=== PATIENT | female | born 1960 | race Caucasian/White ===

== ENCOUNTER 2019-07-03 13:39 | Emergency (ER) | payer OTHER ==
[2019-07-03] MEDS ORDERED: Sodium Chloride 0.9% 10 ML Syringe FLUSH PRN (13:43)
[2019-07-03 14:13] LABS: CHLORIDE,CL 92 mmol/L (98-107); SODIUM,NA 130 mmol/L (136-145)
[2019-07-03] MEDS: Ondansetron 4 MG/2 ML SDV IVPUSH ONE (14:17)
[2019-07-03] MEDS: Sodium Chloride 0.9% 250 ML IV SCH (14:17)
[2019-07-03] MEDS: SUMAtriptan 6 MG/0.5 ML SDV SUBCUT ONE (14:52)
[2019-07-03] MEDS: LORazepam 1 MG Tab PO ONE (14:53)
--- NOTE | 2019-07-03 15:45 | EDM.PDOC ---
ED HPI GENERAL MEDICAL PROBLEM - General Chief Complaint: General Stated Complaint: dizziness, "head feels foggy" Time Seen by Provider: 07/03/19 13:45 Source of Information: Reports: Patient History Limitations: Reports: No Limitations - History of Present Illness INITIAL COMMENTS - FREE TEXT/NARRATIVE: Patient is a 58-year-old who is seen with chief complaint of not being able to focus with her vision on single object is a and dizzy he appears to be very anxious recently was told that her sister had 2 or in the head and had surgery she spent 4 days over there and is very concerned and anxious about this at this time we evaluated her and performed a CT of the head which was negative Onset: Sudden Duration: Day(s):, Getting Worse Location: Reports: Head, Face Quality: Reports: Ache Severity: Moderate Improves with: Reports: None Worsens with: Reports: None Context: Reports: Other (Anxiety) Associated Symptoms: Reports: Headaches, Nausea/Vomiting - Related Data Allergies Allergy/AdvReac Type Severity Reaction Status Date / Time No Known Allergies Allergy Verified 07/03/19 13:44 Home Meds: Home Meds . [No Known Home Meds] 07/03/19 [History] ED ROS GENERAL - Review of Systems Review Of Systems: See Below Constitutional: Reports: No Symptoms HEENT: Reports: No Symptoms Respiratory: Reports: No Symptoms Cardiovascular: Reports: No Symptoms Endocrine: Reports: No Symptoms GI/Abdominal: Reports: No Symptoms : Reports: No Symptoms Musculoskeletal: Reports: No Symptoms Skin: Reports: No Symptoms Neurological: Reports: No Symptoms Psychiatric: Reports: No Symptoms Hematologic/Lymphatic: Reports: No Symptoms Immunologic: Reports: No Symptoms ED EXAM, GENERAL - Physical Exam Exam: See Below Exam Limited By: No Limitations General Appearance: Alert, WD/WN, No Apparent Distress Ears: Normal External Exam, Normal Canal, Hearing Grossly Normal, Normal TMs Ear Exam: Bilateral Ear: Auricle Normal, Canal Normal, TM normal Nose: Normal Inspection, Normal Mucosa, No Blood Throat/Mouth: Normal Inspection, Normal Lips, Normal Teeth, Normal Gums, Normal Oropharynx, Normal Voice, No Airway Compromise Head: Atraumatic, Normocephalic Neck: Normal Inspection, Supple, Non-Tender, Full Range of Motion Respiratory/Chest: No Respiratory Distress, Lungs Clear, Normal Breath Sounds, No Accessory Muscle Use, Chest Non-Tender Cardiovascular: Normal Peripheral Pulses, Regular Rate, Rhythm, No Edema, No Gallop, No JVD, No Murmur, No Rub GI/Abdominal: Normal Bowel Sounds, Soft, Non-Tender, No Organomegaly, No Distention, No Abnormal Bruit, No Mass (Female) Exam: Normal External Exam, Normal Speculum Exam, Normal Bimanual Exam Rectal (Female) Exam: Normal Exam, Normal Rectal Tone Back Exam: Normal Inspection, Full Range of Motion, NT Extremities: Normal Inspection, Normal Range of Motion, Non-Tender, Normal Capillary Refill, No Pedal Edema Neurological: Alert, Oriented, CN II-XII Intact, Normal Cognition, Normal Gait, Normal Reflexes, No Motor/Sensory Deficits Psychiatric: Normal Affect, Normal Mood Skin Exam: Warm, Dry, Intact, Normal Color, No Rash Lymphatic: No Adenopathy Course - Orders/Labs/Meds Orders: Active Orders 24 hr Category Date Time Status Head wo Cont [CT] Stat Exams 07/03/19 13:44 Taken Sodium Chloride 0.9% [Normal Saline] 250 ml Med 07/03/19 13:45 Active IV ASDIRECTED Sodium Chloride 0.9% [Saline Flush] Med 07/03/19 13:43 Active 10 ml FLUSH ASDIRECTED PRN Saline Lock Insert [OM.PC] Stat Oth 07/03/19 13:44 Ordered Medication Orders Sodium Chloride (Normal Saline) 250 mls @ 250 mls/hr IV ASDIRECTED [facility] Last Admin: 07/03/19 14:17 Dose: 250 mls/hr Sodium Chloride (Saline Flush) 10 ml FLUSH ASDIRECTED PRN PRN Reason: Keep Vein Open Labs: Laboratory Tests 07/03/19 07/03/19 Range/Units 13:50 13:50 WBC 3.9 L (4.0-10.2) K/uL RBC 4.24 (3.77-5.09) M/uL Hgb 14.2 (11.7-15.5) g/dL Hct 39.9 (34.0-46.0) % MCV 94.1 (84.0-98.0) fL MCH 33.5 H (28.2-33.3) pg MCHC 35.6 (31.7-36.0) g/dL RDW 12.8 (11.2-14.1) % Plt Count 340 (150-350) K/uL Neut % (Auto) 37.8 L (45.0-80.0) % Lymph % (Auto) 48.3 (10.0-50.0) % [place] % (Auto) 10.3 (2.0-14.0) % Eos % (Auto) 2.8 (0.0-5.0) % Baso % (Auto) 0.8 (0.0-2.0) % Neut # (Auto) 1.46 (1.40-7.00) K/uL Lymph # (Auto) 1.87 (0.50-3.50) K/uL [place] # (Auto) 0.40 (0.00-1.00) K/uL Eos # (Auto) 0.11 (0.00-0.50) K/uL Baso # (Auto) 0.03 (0.00-0.20) K/uL Sodium 130 L (136-145) mmol/L Potassium 4.0 (3.5-5.1) mmol/L Chloride 92 L (98-107) mmol/L Carbon Dioxide 25.2 (21.0-32.0) mmol/L BUN 10 (7-18) mg/dL Creatinine 0.48 L (0.51-1.17) mg/dL Est Cr Clr Drug Dosing TNP Estimated GFR (MDRD) > 60 mL/min Glucose 93 (74-106) mg/dL Calcium 8.7 (8.5-10.1) mg/dL Meds: Medications Generic Name Dose Route Start Last Admin Trade Name Freq PRN Reason Stop Dose Admin Sodium Chloride 250 mls @ 250 mls/hr 07/03/19 13:45 07/03/19 14:17 Normal Saline IV 250 mls/hr ASDIRECTED MARGOTH Administration Sodium Chloride 10 ml 07/03/19 13:43 Saline Flush FLUSH ASDIRECTED PRN Keep Vein Open Discontinued Medications Generic Name Dose Route Start Last Admin Trade Name Freq PRN Reason Stop Dose Admin Lorazepam 1 mg 07/03/19 14:33 07/03/19 14:53 Ativan PO 07/03/19 14:34 1 mg ONETIME ONE Administration Ondansetron HCl 4 mg 07/03/19 13:45 07/03/19 14:17 Zofran IVPUSH 07/03/19 13:46 4 mg ONETIME ONE Administration Sumatriptan Succinate 6 mg 07/03/19 14:32 07/03/19 14:52 Imitrex SUBCUT 07/03/19 14:33 6 mg ONETIME ONE Administration Departure - Departure Time of Disposition: 15:45 Disposition: Home, Self-Care 01 Condition: Fair Clinical Impression: Anxiety as acute reaction to exceptional stress - Discharge Information *PRESCRIPTION DRUG MONITORING PROGRAM REVIEWED*: Yes *COPY OF PRESCRIPTION DRUG MONITORING REPORT IN PATIENT DARNELL: Yes Instructions: Sumatriptan injection, Lorazepam tablets Referrals: Kamila Kohler PA [Primary Care Provider] - Forms: ED Department Discharge Additional Instructions: Patient will be sent home on Ativan 1 mg when necessary for headaches and anxiety secondary to stress - My Orders Last 24 Hours: My Active Orders 07/03/19 13:43 Sodium Chloride 0.9% [Saline Flush] 10 ml FLUSH ASDIRECTED PRN 07/03/19 13:44 Head wo Cont [CT] Stat Saline Lock Insert [OM.PC] Stat 07/03/19 13:45 Sodium Chloride 0.9% [Normal Saline] 250 ml IV ASDIRECTED - Assessment/Plan Last 24 Hours: My Active Orders 07/03/19 13:43 Sodium Chloride 0.9% [Saline Flush] 10 ml FLUSH ASDIRECTED PRN 07/03/19 13:44 Head wo Cont [CT] Stat Saline Lock Insert [OM.PC] Stat 07/03/19 13:45 Sodium Chloride 0.9% [Normal Saline] 250 ml IV ASDIRECTED
== END 2019-07-03 16:00 | disposition home or self-care (01) ==
LOC: SUPCPDRO 13:39 → LL.ED 13:39
DX: F41.1 Generalized anxiety disorder (principal); F43.0 Acute stress reaction
CPT/HCPCS: 36415; 70450; 80048; 85025; 96360; 96372; 96374; 99284; A9270; J2405; J3030; J7050

== ENCOUNTER 2021-09-05 11:32 | Day surgery (SDC) | payer OTHER ==
[~2021-09-05 11:32] MED LIST: Lactated Ringers 1,000 ML IV SCH; Midazolam 1 MG/ML 2 ML SDV ONE; Propofol 200 MG/20 ML SDV ONE; Sodium Chloride 0.9% 10 ML Syringe FLUSH PRN
[2021-09-05] MEDS ORDERED: Midazolam 1 MG/ML 2 ML SDV ONE ×2 (12:36→12:48)
--- NOTE | 2021-09-05 12:39 | PCM.PN ---
- General Info Date of Service: 09/05/21 - Review of Systems Systems Review Comment:: 60-year-old female here for colonoscopy. She has a family history of colon polyps and also had a recent positive Cologuard test. She is medically stable to proceed today. Her recent history and physical is reviewed and no significant changes are noted. I have discussed the proposed colonoscopy with the patient. Risks such as but not limited to bleeding and GI injury reviewed. She agrees to proceed. - Patient Data Weight - Most Recent: 81.647 kg Med Orders - Current: Current Medications Lactated Ringer's (Ringers, Lactated) 1,000 mls @ 125 mls/hr IV ASDIRECTED MARGOTH Sodium Chloride (Sodium Chloride 0.9% 10 Ml Syringe) 10 ml FLUSH ASDIRECTED PRN PRN Reason: Keep Vein Open Discontinued Medications Midazolam HCl (Midazolam 1 Mg/Ml 2 Ml Sdv) Confirm Administered Dose 2 mg .ROUTE .STK-MED ONE Stop: 09/05/21 08:34 Midazolam HCl (Midazolam 1 Mg/Ml 2 Ml Sdv) Confirm Administered Dose 2 mg .ROUTE .STK-MED ONE Stop: 09/05/21 12:37 Propofol (Propofol 200 Mg/20 Ml Sdv) Confirm Administered Dose 400 mg .ROUTE .STK-MED ONE Stop: 09/05/21 08:34 - Problem List Review Problem List Initiated/Reviewed/Updated: Yes - Assessment Assessment:: Positive Cologuard - Plan Plan:: Colonoscopy
[2021-09-05] MEDS ORDERED: Propofol 200 MG/20 ML SDV ONE (12:48)
--- NOTE | 2021-09-05 13:37 | PCM.OPNOTE ---
- General Post-Op/Procedure Note Date of Surgery/Procedure: 09/05/21 Operative Procedure(s): Colonoscopy with polypectomy Findings: Multiple colon polyps Pre Op Diagnosis: Positive Cologuard Post-Op Diagnosis: Colon polyps Anesthesia Technique: MAC Primary Surgeon: Jude Martínez Pathology: Colon polyps EBL in mLs: 0 Complications: None Condition: Good
--- NOTE | 2021-09-05 14:58 | OR ---
Date of Procedure: 09/05/2021 PREOPERATIVE DIAGNOSIS: Positive Cologuard and family history of colon polyps. POSTOPERATIVE DIAGNOSIS: Colon polyps. OPERATIONS PERFORMED: Colonoscopy with polypectomy. INDICATIONS FOR SURGERY: This 60-year-old female is referred for colonoscopy. She has a known family history of colon polyps and was recently noted to have a positive Cologuard test. FINDINGS: Four polyps were noted on today's exam. There was a 12 mm soft, irregular sessile polyp in the cecum, a 15-mm sessile polyp at the hepatic flexure, a 7-mm pedunculated polyp in the transverse colon, and a 4-mm sessile polyp in the rectum 3 cm from the anal verge. The remainder of the colon, otherwise, appears normal. DESCRIPTION OF PROCEDURE: The patient was taken to the operating room, given intravenous sedation, and with her in the left lateral decubitus position, digital rectal exam was performed showing no rectal masses. The Olympus colonoscope was inserted into the rectum and retroflexed examination of the rectal canal was performed. In the rectum, the above-described small polyp was identified. This was completely removed with a biopsy forceps. The scope was then carefully advanced under direct visualization through the entire length of the colon until the cecum was reached. Cecal acquisition was confirmed by noting normal internal cecal anatomy including the appendiceal orifice and the ileocecal valve. In the cecum, a sessile polyp was identified. This was removed with a cautery snare and retrieved. The scope was then slowly withdrawn sequentially re-examining the colonic segments. At the hepatic flexure, another sessile polyp was identified. This was removed piecemeal with a cautery snare and retrieved. Both of these larger polyps did appear to be completely removed with the polypectomy procedure. The scope was then further withdrawn, and in the transverse colon, a smaller pedunculated polyp was noted. This also was removed with a cautery snare and retrieved. Examination was completed, and with no sign of any bleeding or other complication, the scope was removed and the patient was taken from the operating room in satisfactory condition. ESTIMATED BLOOD LOSS: Zero. COMPLICATIONS: None. PROGNOSIS: Good. EDWIGE Martínez MD /[id number]
[2021-09-05 16:47] VITALS: BP 113/81; PULSE 88
== END 2021-09-05 14:20 | disposition home or self-care (01) ==
LOC: LL.SDS 11:32
PROVIDERS: ATTEND Surgery
DX: R19.5 Other fecal abnormalities (principal); Z80.0 Family history of malignant neoplasm of digestive organs; Z98.890 Other specified postprocedural states; I10 Essential (primary) hypertension; Z79.899 Other long term (current) drug therapy; Z87.891 Personal history of nicotine dependence; Z83.71 Family history of colonic polyps
CPT/HCPCS: 00812; J2250; J2704